=== PATIENT | male | born 1985 | race Caucasian/White ===

== ENCOUNTER 2021-07-22 00:23 | Observation (INO) ==
[2021-07-22] MEDS ORDERED: LORazepam 1 MG in SYRINGE 0.5 ML IV STA (00:38)
[2021-07-22] MEDS ORDERED: SODIUM CHLORIDE 0.9% 1000ML 1,000 ML IV STA (00:38)
--- NOTE | 2021-07-22 00:42 | Emergency Department Note ---
Impression & Plan Elevated troponin I level ADMIT ED Provider Note HPI: The patient is a 36-year-old male who presents the emergency department with a chief complaint of anxiety and lightheadedness after eating some CBD Gummies that he purchased. Patient states that about an hour or 2 after eating these Gummies he began to feel a sensation of some lightheadedness, states he was feeling anxious, he contacted EMS for transport to the ED. Patient is in no acute distress on arrival but he is noted to be tachycardic in the 120s, denies any chest pain or shortness of breath. He is otherwise hemodynamically stable on arrival.He is alert and oriented and able to give me a lucid history. ROS: - General: Anxiety status post drug ingestion *10 point review systems was conducted and is otherwise negative unless stated above *Outpatient medications and allergy history reviewed PE: General: Alert, NAD HEENT: Normocephalic, atraumatic Eyes: Extraocular eye movement is intact, no scleral erythema Pulmonary: Clear to auscultation bilaterally, no wheezing Cardio: Tachycardic rate and regular rhythm GI: Abdomen is soft, nontender : No suprapubic tenderness MSK: No evidence of trauma or malformation of the extremities, no edema Skin: No evidence of rash Neuro: Alert, no focal deficits Psychiatric: Cooperative hall monitor: - An order was placed for continuous cardiac monitoring - Patient was noted to be in sinus rhythm with rate of 122 EKG: Rate: 119 Rhythm: Sinus tachycardia Intervals: Within normal limits ST changes: No ST elevation Time: 0032 CTA CHEST: Mild bilateral lower lobe atelectasis otherwise no acute cardiopulmonary disease. No pulmonary embolus or aortic dissection. No pleural effusion or pneumothorax. Upper abdomen is unremarkable. Unremarkable bony structures. Normal cardiomediastinal structures. Radiologist: Suzanne Marley MD Medical Decision Making: Patient presented to the emergency department after having a CBD edible, states he was feeling lightheaded and anxious, on arrival he is tachycardic, he denies any current chest pain. IV was established, lab work obtained, lab work does not show any evidence of any acute electrolyte abnormalities, high-sensitivity troponin level is noted to be slightly elevated at 20.7, D-dimer is also elevated at 690. Delta troponin was obtained and there is significant change to a high- sensitivity troponin level at 2 hours to 56, CT angiography of the chest was obtained that does not show any evidence of pulmonary embolism or aortic dissection.On my reassessment following IV fluids and Ativan the patient states he is feeling improved, his tachycardia is down trended, given his uptrending high-sensitivity troponin levels I do feel it would be beneficial for him to be admitted for further management. Patient expressed an agreement understanding. Case was discussed with the on-call hospitalist for [facility], Dr. Frausto, And the patient was admitted in stable condition for further care. Diagnosis: 1. Elevated high-sensitivity troponin level 2. Tachycardia 3. CBD abuse/ingestion Disposition: Admission Rafy Mcdaniel DO Emergency Medicine Past Med/Surg History Social History Smoking Status: Never smoker Feels Safe at Home: Yes Allergies Allergies Allergy/AdvReac Type Severity Reaction Status Date / Time No Known Allergies Allergy Unverified 07/22/21 01:13 Home Meds Home Medications Medication Instructions Recorded Confirmed budesonide-formoterol HFA 80 1 puff INHALATION DAILY 07/22/21 07/22/21 mcg-4.5 mcg/actuation aerosol inhaler (Symbicort) Results & Data (ED) Vital Signs Vital Signs - 24 hr 07/22/21 00:27 07/22/21 00:29 07/22/21 00:30 Temperature 36.7 C Temperature Source Oral Pulse Rate 123 H 128 H 120 H Pulse Rate [Apical] Pulse Rate from SpO2 Sensor 127 H 119 H Respiratory Rate 24 17 22 Respiratory Effort / Characteristics Non-Labored Spontaneous Respiratory Depth Normal Blood Pressure 143/92 H 131/85 Blood Pressure [Right Arm] Blood Pressure Mean 109 100 Blood Pressure Mean [Right Arm] Pulse Oximetry 100 98 100 Oxygen Delivery Method Room Air Sepsis Recent Fever Within 48 Hours No Sepsis New/Unexplained Change in Mental Status No Sepsis Action Taken by Nursing No Action Required 07/22/21 00:58 07/22/21 01:00 07/22/21 01:30 Temperature Temperature Source Pulse Rate 111 H 109 H Pulse Rate [Apical] Pulse Rate from SpO2 Sensor 108 H 108 H Respiratory Rate 20 21 Respiratory Effort / Characteristics Respiratory Depth Blood Pressure 138/82 129/81 Blood Pressure [Right Arm] Blood Pressure Mean 100 97 Blood Pressure Mean [Right Arm] Pulse Oximetry 99 100 99 Oxygen Delivery Method Room Air Sepsis Recent Fever Within 48 Hours Sepsis New/Unexplained Change in Mental Status Sepsis Action Taken by Nursing 07/22/21 01:35 07/22/21 02:00 07/22/21 02:30 Temperature Temperature Source Pulse Rate 89 93 H Pulse Rate [Apical] 111 H Pulse Rate from SpO2 Sensor 89 94 H Respiratory Rate 16 18 19 Respiratory Effort / Characteristics Respiratory Depth Blood Pressure 119/77 120/71 Blood Pressure [Right Arm] 129/81 Blood Pressure Mean 91 87 Blood Pressure Mean [Right Arm] 97 Pulse Oximetry 100 99 98 Oxygen Delivery Method Room Air Sepsis Recent Fever Within 48 Hours Sepsis New/Unexplained Change in Mental Status Sepsis Action Taken by Nursing 07/22/21 03:00 07/22/21 03:30 07/22/21 04:00 Temperature Temperature Source Pulse Rate 93 H 90 102 H Pulse Rate [Apical] Pulse Rate from SpO2 Sensor 92 H 91 H 102 H Respiratory Rate 17 19 18 Respiratory Effort / Characteristics Respiratory Depth Blood Pressure 123/74 120/63 129/73 Blood Pressure [Right Arm] Blood Pressure Mean 90 82 91 Blood Pressure Mean [Right Arm] Pulse Oximetry 97 99 99 Oxygen Delivery Method Sepsis Recent Fever Within 48 Hours Sepsis New/Unexplained Change in Mental Status Sepsis Action Taken by Nursing 07/22/21 04:30 Temperature Temperature Source Pulse Rate 106 H Pulse Rate [Apical] Pulse Rate from SpO2 Sensor 107 H Respiratory Rate 18 Respiratory Effort / Characteristics Respiratory Depth Blood Pressure 128/76 Blood Pressure [Right Arm] Blood Pressure Mean 93 Blood Pressure Mean [Right Arm] Pulse Oximetry 99 Oxygen Delivery Method Sepsis Recent Fever Within 48 Hours Sepsis New/Unexplained Change in Mental Status Sepsis Action Taken by Nursing Laboratory Data Result diagrams: 07/22/21 00:55 07/22/21 03:56 Lab Results 07/22/21 07/22/21 07/22/21 Range/Units 00:55 00:55 03:00 WBC 8.13 (4.8-10.8) K/uL RBC 4.17 L (4.7-6.1) M/uL Hgb 13.8 L (14.0-18.0) g/dL Hct 40.2 L (42-52) % MCV 96.4 (80-100) fL MCH 33.1 (25-34) pg MCHC 34.3 (32-36) g/dL RDW Std Deviation 44.8 (36.4-46.3) fL RDW Coeff of Remigio 12.8 (11.5-14.5) % Plt Count 254 (130-400) K/uL MPV 10.7 H (7.4-10.4) fL Immature Gran % (Auto) 0.6 % Neut % (Auto) 69.0 % Lymph % (Auto) 20.9 % Frio % (Auto) 7.1 % Eos % (Auto) 2.3 % Baso % (Auto) 0.1 % Neut # (Auto) 5.60 (1.4-6.5) K/uL Lymph # (Auto) 1.70 (1.2-3.4) K/uL Frio # (Auto) 0.58 (0.11-0.59) K/uL Eos # (Auto) 0.19 (0-0.5) K/uL Baso # (Auto) 0.01 (0-0.2) K/uL Immature Gran # (Auto) 0.05 H (0.00-0.02) K/uL D-Dimer (0-500) ug/L FEU Sodium TNP 141 Potassium TNP TNP Chloride 107 (98-107) mmol/L Carbon Dioxide 26 (21-32) mmol/L Anion Gap TNP BUN 17 (6-23) mg/dl Creatinine 1.02 (0.6-1.4) mg/dl Est Cr Clr Drug Dosing 107.4 ml/min Est GFR ( Amer) 109.9 ml/min Est GFR (Non-Af Amer) 94.8 ml/min BUN/Creatinine Ratio 16.7 (10-20) Glucose 147 H (70-99(Fasting)) mg/dl Calcium 9.0 (8.5-10.1) mg/dl Total Bilirubin 0.5 (0.2-1.0) mg/dl AST TNP TNP ALT 37 (7-52) U/L Alkaline Phosphatase TNP 58 Troponin I High Sens 20.7 H (0-20) pg/ml Total Protein 7.2 (6.0-8.3) gm/dl Albumin TNP 4.3 Globulin TNP Albumin/Globulin Ratio TNP 07/22/21 07/22/21 07/22/21 Range/Units 03:00 03:18 03:56 WBC (4.8-10.8) K/uL RBC (4.7-6.1) M/uL Hgb (14.0-18.0) g/dL Hct (42-52) % MCV (80-100) fL MCH (25-34) pg MCHC (32-36) g/dL RDW Std Deviation (36.4-46.3) fL RDW Coeff of Remigio (11.5-14.5) % Plt Count (130-400) K/uL MPV (7.4-10.4) fL Immature Gran % (Auto) % Neut % (Auto) % Lymph % (Auto) % Frio % (Auto) % Eos % (Auto) % Baso % (Auto) % Neut # (Auto) (1.4-6.5) K/uL Lymph # (Auto) (1.2-3.4) K/uL Frio # (Auto) (0.11-0.59) K/uL Eos # (Auto) (0-0.5) K/uL Baso # (Auto) (0-0.2) K/uL Immature Gran # (Auto) (0.00-0.02) K/uL D-Dimer 690 H* (0-500) ug/L FEU Sodium Potassium 4.3 Chloride (98-107) mmol/L Carbon Dioxide (21-32) mmol/L Anion Gap BUN (6-23) mg/dl Creatinine (0.6-1.4) mg/dl Est Cr Clr Drug Dosing ml/min Est GFR ( Amer) ml/min Est GFR (Non-Af Amer) ml/min BUN/Creatinine Ratio (10-20) Glucose (70-99(Fasting)) mg/dl Calcium (8.5-10.1) mg/dl Total Bilirubin (0.2-1.0) mg/dl AST 27 ALT (7-52) U/L Alkaline Phosphatase Troponin I High Sens 56.2 H* D (0-20) pg/ml Total Protein (6.0-8.3) gm/dl Albumin Globulin Albumin/Globulin Ratio Administered Medications Discontinued Medications Sodium Chloride (Nss 1000ml) 1,000 mls @ 999 mls/hr IV .Q1H1M STA Stop: 07/22/21 01:38 Last Infusion: 07/22/21 02:14 Dose: 0 mls/hr Documented by: [id number] Admin: 07/22/21 00:54 Dose: 999 mls/hr Documented by: [id number] Lorazepam 1 mg/ Syringe 1 mls @ 2 mls/min IV NOW STA Stop: 07/22/21 00:39 Last Admin: 07/22/21 00:54 Dose: 2 mls/min Documented by: [id number] Ioversol (Optiray 320 125ml) 125 ml IV ONCE ONE Stop: 07/22/21 04:17 Last Admin: 07/22/21 04:16 Dose: 102 ml Documented by: [id number] Discharge Plan Visit Data Chief Complaint: Anxiety ED Provider: Rafy Mcdaniel Discharge Problem: Elevated troponin I level Forms Stand Alone Forms: [facility], Suicide Prevention Resources Prescriptions Prescriptions: No Action budesonide-formoterol [Symbicort] 80-4.5 mcg/actuation Hfa Aerosol Inhaler 1 puff INHALATION DAILY RF: 0 Referrals Referrals: PCP,NO [Primary Care Provider] -
[2021-07-22 01:14] LABS: Basophils # (auto) 0.01 K/uL (0-0.2); Basophils % (auto) 0.1 %; Eosinophils # (auto) 0.19 K/uL (0-0.5); Eosinophils % (auto) 2.3 %; Hematocrit (blood only) 40.2 % (42-52); Hemoglobin 13.8 g/dL (14.0-18.0); Immature Granulocytes # (auto) 0.05 K/uL (0.00-0.02); Immature Granulocytes % (auto) 0.6 %; Lymphocytes % (auto) 20.9 %; Mean Corpuscular Hemoglobin 33.1 pg (25-34); Mean Corpuscular Hgb Conc 34.3 g/dL (32-36); Mean Corpuscular Volume 96.4 fL (80-100); Mean Platelet Volume 10.7 fL (7.4-10.4); Monocytes # (auto) 0.58 K/uL (0.11-0.59); Monocytes % (auto) 7.1 %; Platelet Count 254 K/uL (130-400); RDW Coefficient of Variation 12.8 % (11.5-14.5); RDW Standard Deviation 44.8 fL (36.4-46.3); Red Blood Count 4.17 M/uL (4.7-6.1); White Blood Count 8.13 K/uL (4.8-10.8)
[2021-07-22 01:51] LABS: Alanine Aminotransferase 37 U/L (7-52); BUN Creatinine Ratio 16.7 (10-20); Bilirubin,Total 0.5 mg/dl (0.2-1.0); Blood Urea Nitrogen 17 mg/dl (6-23); Carbon Dioxide 26 mmol/L (21-32); Chloride 107 mmol/L (98-107); Creatinine Clr Calc Pharmacy 107.4 ml/min; Est GFR (African American) 109.9 ml/min; Est GFR (Non-African American) 94.8 ml/min; Glucose 147 mg/dl (70-99(Fasting)); Total Protein 7.2 gm/dl (6.0-8.3); Troponin I High Sensitivity 20.7 pg/ml (0-20)
[2021-07-22 03:47] LABS: Albumin Level 4.3 gm/dl (3.4-5.0); Alkaline Phosphatase 58 U/L (34-104); Sodium 141 mmol/L (136-145)
[2021-07-22 03:48] LABS: D Dimer 690 ug/L FEU (0-500)
[2021-07-22] MEDS ORDERED: OPTIRAY 320 125ml IV ONE (04:16)
[2021-07-22 04:21] LABS: Potassium 4.3 mmol/L (3.5-5.1)
[2021-07-22] MEDS ORDERED: ASPIRIN CHEW 324 MG PO STA (06:03)
[2021-07-22] MEDS ORDERED: SODIUM CHLORIDE 0.9% 500 ML IV SCH (06:51)
[2021-07-22] MEDS ORDERED: NITROGLYCERIN SL 0.4 MG/TAB TAB SL PRN (06:51)
[2021-07-22] MEDS ORDERED: ONDANSETRON INJ 2 MG/ML 2 ML VIAL IV PRN (06:51)
[2021-07-22] MEDS ORDERED: ALBUTEROL HFA 8 GM INHALER INH PRN (06:51)
[2021-07-22] MEDS ORDERED: LORazepam 0.5 MG in SYRINGE 0.25 ML IV PRN (06:51)
[2021-07-22] MEDS ORDERED: ACETAMINOPHEN 325 MG TAB PO PRN (06:51)
--- NOTE | 2021-07-22 07:32 | History and Physical Report ---
DATE OF ADMISSION: 07/22/2021. CHIEF COMPLAINT: Anxiety, palpitations. HISTORY OF PRESENT ILLNESS: This is a 36-year-old male with past medical history significant for asthma, who is from visiting [employer] for learning, he is here for about a week. Says he was with friends, he was having fun, had a couple of beers and had two CBD gummies. Then he was feeling anxious, palpitations, headache, dizziness, nausea, on and off chest discomfort, which prompted him to come to the ER.When he came in he was tachycardic, heart rate is in 120s. His initial troponin was 20, but repeat in two hours is 56. The patient denies any chest pain, no shortness of breath, no abdominal pain. Normal bowel and bladder movements. Appetite is okay. No earache, no runny nose, no sore throat, no cough.Covid rapid test came back positive. ALLERGIES: No known drug allergies. PAST MEDICAL HISTORY: As mentioned above. PAST SURGICAL HISTORY: None. MEDICATIONS: On Symbicort 1 puff inhalation daily. SOCIAL HISTORY: Denies smoking. Alcohol occasional. Denies any other drugs in the past except for the CBD, which was done the second time. FAMILY HISTORY: Unknown at this time. PHYSICAL EXAMINATION: GENERAL: The patient is of moderate build, not in acute distress. VITAL SIGNS: Temperature 36.7, pulse currently 106, respiratory rate 18, blood pressure 128/76, oxygen 99% on room air. HEENT: Pupils equal, round, and reactive to light. Oral mucosa dry. NECK: No JVD, no neck masses. CARDIOVASCULAR: S1 and S2 heard, tachycardia. No murmurs. RESPIRATORY SYSTEM: Normal AP diameter. No accessory muscle use. No wheezing, no crackles. ABDOMEN: Soft. Bowel sounds are present, nontender, no distention. CENTRAL NERVOUS SYSTEM: Cranial nerves II through XII are grossly intact, nonfocal. EXTREMITIES: No edema, no erythema. LABORATORY DATA: WBC 8.1, hemoglobin 13.8, hematocrit 40.2, platelets 254. D- dimer 690. Sodium 141, potassium 4.3, chloride 107, bicarbonate 26, BUN 17, creatinine 1.02, serum glucose 147, calcium 9, total bilirubin 0.5, AST 27, ALT 37, alkaline phosphatase 58. Troponin I high sensitivity 20, repeat 56. LEBRON-CoV-2 rapid test positive. IMAGING DATA: CTA chest, mild bilateral lower lobe atelectasis, otherwise no acute cardiopulmonary disease, no pulmonary embolus or aortic dissection. No pleural effusion or pneumothorax. Upper abdomen is unremarkable. Unremarkable bony structure. Normal cardiomediastinal structures. EKG: Sinus tachycardia at a rate of 119. Nonspecific ST abnormalities. ASSESSMENT AND PLAN: This is a 36-year-old male who presents with anxiety after taking two CBD gummies. 1. Anxiety, palpitations after taking two CBD gummies and couple of beers. This is the second time that he had CBD gummies. Denies any drug use. He received one dose of Ativan in the ER, currently resting comfortably. Seems improving. Received some fluids in the ER. Will continue with IV fluids, IV Ativan p.r.n. Closely monitor in the [employer] tele. 2. Mild elevation of troponin: Probably secondary to above. He had some chest discomfort but none currently. Will follow the echocardiogram and serial cardiac enzymes. 3. Asthma: Continue home inhalers. 4. Elevated D-dimer: CTA chest was unremarkable. 5. COVID positive on rapid test. Saturating okay on room air and CTA chest is unremarkable. Placed the patient on COVID precautions. 6. Deep venous thrombosis prophylaxis: Will place him on Lovenox. DISPOSITION: Observe in [employer] tele. PT/OT prior to discharge. Social service to help with discharge planning. Job ID: [id number] MTDD
--- NOTE | 2021-07-22 07:49 | CT Scan Report ---
CT ANGIOGRAPHY OF THE CHEST, PULMONARY EMBOLUS PROTOCOL CLINICAL HISTORY: Atypical chest pain. Evaluate for pulmonary embolus. COMPARISON STUDY: No previous studies for comparison. TECHNIQUE: Following IV administration of 102 mL of Optiray, helical axial images of the chest were o btained utilizing the pulmonary embolus protocol. Maximal intensity projections and sagittal and cor onal reformats were viewed on an independent 3D workstation. IV contrast was administered without co mplication. Automated exposure control was utilized for the study. A dose lowering technique was ut ilized adhering to the principles of ALARA. CT DOSE: 318.56 mGy.cm FINDINGS: No central pulmonary emboli are present. Note is made of a small segmental pulmonary embol us within the lateral basal segment of the left lower lobe on axial image 111 of 371. No additional p ulmonary emboli are identified. There is no pulmonary infarct. No thoracic aortic dissection is prese nt. Size the heart is normal. No pericardial effusion. There are multiple small low suspicion pulmona ry nodules which measure up to 4 mm. Visualized portions of the upper abdomen are unremarkable. There is a healing anterior left fifth rib fracture. IMPRESSION: 1. Small segmental pulmonary embolus within the lateral basal segment of the left lower lobe. This fi nding will be called/faxed to ordering provider at time of dictation. 2. No additional pulmonary emboli. No pulmonary infarcts. 3. Several small low suspicion pulmonary nodules measuring up to 4 mm which are likely benign. ACT 112: Negative or not required by law. Electronically signed by: Yohan Bahena M.D. 07/22/2021 7:48 AM
[2021-07-22 09:56] LABS: Basophils # (auto) 0.01 K/uL (0-0.2); Basophils % (auto) 0.1 %; Eosinophils # (auto) 0.02 K/uL (0-0.5); Eosinophils % (auto) 0.2 %; Hematocrit (blood only) 42.1 % (42-52); Hemoglobin 13.9 g/dL (14.0-18.0); Immature Granulocytes # (auto) 0.03 K/uL (0.00-0.02); Immature Granulocytes % (auto) 0.3 %; Lymphocytes # (auto) 0.61 K/uL (1.2-3.4); Lymphocytes % (auto) 6.2 %; Mean Corpuscular Hemoglobin 31.5 pg (25-34); Mean Corpuscular Volume 95.5 fL (80-100); Mean Platelet Volume 9.8 fL (7.4-10.4); Monocytes # (auto) 0.84 K/uL (0.11-0.59); Monocytes % (auto) 8.6 %; Neutrophils # (auto) 8.28 K/uL (1.4-6.5); Neutrophils % (auto) 84.6 %; Platelet Count 234 K/uL (130-400); RDW Standard Deviation 45.6 fL (36.4-46.3); Red Blood Count 4.41 M/uL (4.7-6.1); White Blood Count 9.79 K/uL (4.8-10.8)
[2021-07-22 10:12] LABS: Potassium 3.9 mmol/L (3.5-5.1)
[2021-07-22 10:13] LABS: BUN Creatinine Ratio 13.7 (10-20); Creatinine Clr Calc Pharmacy 102.5 ml/min; Est GFR (African American) 109.9 ml/min; Est GFR (Non-African American) 94.8 ml/min; Magnesium 2.2 mg/dl (1.7-2.4)
[2021-07-22] MEDS: SODIUM CHLORIDE 0.45 % 1,000 ML IV SCH ×2 (10:15→18:04)
[2021-07-22 10:19] LABS: Troponin I High Sensitivity 18.7 pg/ml (0-20)
[2021-07-22] MEDS: APIXABAN 5 MG TABLET PO SCH ×2 (10:30→20:53)
[2021-07-22] MEDS: FLUTICASONE/VILANTEROL 100/25MCG 14 PUFFS/INHALER INH SCH (10:31)
--- NOTE | 2021-07-22 11:32 | Electrocardiogram Report ---
Test Reason : Blood Pressure : / mmHG Vent. Rate : 119 BPM Atrial Rate : 119 BPM P-R Int : 168 ms QRS Dur : 098 ms QT Int : 318 ms P-R-T Axes : 066 074 042 degrees QTc Int : 447 ms Poor data quality, interpretation may be adversely affected Sinus tachycardia Possible Left atrial enlargement Incomplete right bundle branch block Left ventricular hypertrophy Nonspecific ST abnormality Abnormal ECG No previous ECGs available Confirmed by Manuel Mejia ([id number]) on 07/22/2021 11:32:39 AM Referred By: REFERRED SELF Confirmed By:Renan Mejia
--- NOTE | 2021-07-22 18:44 | Communication Note ---
Date of Service: July 22, 2021 Pt was seen and examined for follow of palpitation. Lying in bed with no acute distress. Pt said that he is not having any SOB. HR improves significantly. CTA chest showed Small segmental pulmonary embolus within the lateral basal segment of the left lower lobe. No additional pulmonary emboli. No pulmonary infarcts. Several small low suspicion pulmonary nodules measuring up to 4 mm which are likely benign. ECHO showed LV wall motion thickness. LV wall motion is normal with EF 55-60%. Will start on Eliquis 10mg BID for 7 days then 5mg BID. No treatment needed for the COVID 19 since pt saturated well on RA. Continue monitor closely. MD Yana
[2021-07-23 06:58] LABS: Creatinine Clr Calc Pharmacy 100.8 ml/min; Est GFR (African American) 108.6 ml/min; Est GFR (Non-African American) 93.7 ml/min
[2021-07-23] MEDS: FLUTICASONE/VILANTEROL 100/25MCG 14 PUFFS/INHALER INH SCH (08:54)
[2021-07-23 09:11] LABS: Hematocrit (blood only) 42.5 % (42-52); Hemoglobin 14.1 g/dL (14.0-18.0); Mean Corpuscular Hemoglobin 31.8 pg (25-34); Mean Corpuscular Hgb Conc 33.2 g/dL (32-36); Mean Corpuscular Volume 95.7 fL (80-100); Mean Platelet Volume 10.2 fL (7.4-10.4); Platelet Count 208 K/uL (130-400); RDW Coefficient of Variation 13.3 % (11.5-14.5); RDW Standard Deviation 46.5 fL (36.4-46.3); Red Blood Count 4.44 M/uL (4.7-6.1); White Blood Count 6.44 K/uL (4.8-10.8)
[2021-07-23] MEDS: APIXABAN 5 MG TABLET PO SCH (10:28)
--- NOTE | 2021-07-23 10:42 | Electrocardiogram Report ---
Test Reason : Blood Pressure : / mmHG Vent. Rate : 079 BPM Atrial Rate : 079 BPM P-R Int : 146 ms QRS Dur : 088 ms QT Int : 364 ms P-R-T Axes : 069 081 057 degrees QTc Int : 417 ms Normal sinus rhythm Normal ECG When compared with ECG of 22-JUL-2021 00:32, Vent. rate has decreased BY 40 BPM Incomplete right bundle branch block is no longer Present ST no longer depressed in Inferior leads Confirmed by Indio Rivera ([id number]) on 07/23/2021 10:41:58 AM Referred By: REFERRED SELF Confirmed By:Indio Rivera
--- NOTE | 2021-07-23 17:04 | CT Scan Report ---
CT OF THE HEAD WITHOUT CONTRAST CLINICAL HISTORY: headache/ pressure on Eliquis COMPARISON STUDY: No previous studies for comparison. CT DOSE: 537.48 mGy.cm TECHNIQUE: Helical axial images of the head were obtained without IV contrast. Automated exposure con trol was utilized for the study. A dose lowering technique was utilized adhering to the principles o f ALARA. FINDINGS: No acute intracranial hemorrhage, midline shift or mass effect is present. The ventricular system is unremarkable. The basal cisterns are patent. No extra-axial collections are present. There are no findings to suggest acute dural sinus thrombosis or acute territorial infarct. No significant calvarial abnormalities are present. Visualized portions of the sinuses and mastoid air cells are myles ar. IMPRESSION: No acute intracranial findings. ACT 112: Negative or not required by law. Electronically signed by: Yohan Bahena M.D. 07/23/2021 5:02 PM
[2021-07-23] MEDS ORDERED: APIXABAN 5 MG TABLET PO SCH (21:00)
[2021-07-24] MEDS ORDERED: APIXABAN 5 MG TABLET PO SCH (09:00)
--- NOTE | 2021-07-24 11:45 | Discharge Summary ---
Date of Service July 23, 2021 Discharge Data Allergies Allergy/AdvReac Type Severity Reaction Status Date / Time No Known Allergies Allergy Unverified 07/22/21 01:13 Consultations 07/22/21 04:21 ED Decision to Admit Stat Ordered Studies 07/22/21 03:43 CT angio chest PE protocol Urgent 07/23/21 15:53 CT head/brain wo con Urgent Discharge Plan Discharge Items Patient Disposition: Home - Self-Care Reason For Visit: ANXIETY Discharge Diagnosis: COVID 19 Pulmonary embolism Activity: Resume your previous activity Non-emergency contact: Primary Care Provider Call non-emergency contact if: you have any medication questions Follow-up/Referrals: PCP,NO [Primary Care Provider] - Diet: Regular Addtl Attending Provider Instructions: Follow up with your provider within 1 week Continue to wear your mask and practice social distance Continue anticoagulant with Eliquis 10mg twice a day for 5 days, then continue 5mg twice a day Monitor for any abnormal bleeding while taking Eliquis Avoid any activity with risk of Fall Medication Instructions: Eliquis Your condition is typically treated with an anticoagulant. Anticoagulants will thin your blood to help prevent new clots. You should take her medication exactly as directed. Never skip a dose. Never take a double dose. If you miss a dose, take it as soon as you remember. Avoid NSAIDs (Motrin, Aleve, Naproxen, Ibuprofen, Advil, Meloxicam,..) due to risks of bleeding Call your Primary Care doctor if you experience any of the following: Swelling or Pain in your leg Sudden, continuous pain deep in a muscle Pain that worsens when you are active or when you stand still for a long time Chest Pain Sudden Shortness of Breath Rapid or pounding heart beat Fainting Dizziness Cough with blood or bloody sputum Sweating more than normal Bruises Heavy or uncontrolled bleeding Blood in your urine, stool or vomit Black or tarry stools Home Isolation COVID-19 Instructions The following information about Home Isolation is from the CDC Website: https://www.cdc.gov/coronavirus/2019-ncov/hcp/dzntwdwc-rcznwex-ngizyo.html Stay home except to get medical care People who are mildly ill with COVID-19 are able to isolate at home during their illness. You should restrict activities outside your home, except for getting medical care. Do not go to work, school, or public areas. Avoid using public transportation, ride-sharing, or taxis. Separate yourself from other people and animals in your home People: As much as possible, you should stay in a specific room and away from other people in your home. Also, you should use a separate bathroom, if avai lable. Animals: You should restrict contact with pets and other animals while you are sick with COVID-19, just like you would around other people. Although there have not been reports of pets or other animals becoming sick with COVID-19, it is still recommended that people sick with COVID-19 limit contact with animals until more information is known about the virus. When possible, have another member of your household care for your animals while you are sick. If you are sick with COVID-19, avoid contact with your pet, including petting, snuggling, being kissed or licked, and sharing food. If you must care for your pet or be around animals while you are sick, wash your hands before and after you interact with pets and wear a face mask. Call ahead before visiting your doctor If you have a medical appointment, call the healthcare provider and tell them that you have or may have COVID-19. This will help the healthcare providers office take steps to keep other people from getting infected or exposed. Wear a face mask You should wear a face mask when you are around other people (e.g., sharing a room or vehicle) or pets and before you enter a healthcare providers office. If you are not able to wear a face mask (for example, because it causes trouble breathing), then people who live with you should not stay in the same room with you, or they should wear a face mask if they enter your room. Cover your coughs and sneezes Cover your mouth and nose with a tissue when you cough or sneeze. Throw used tissues in a lined trash can. Immediately wash your hands with soap and water for at least 20 seconds or, if soap and water are not available, clean your hands with an alcohol-based hand bridge painter helper that contains at least 60% alcohol. Clean your hands often Wash your hands often with soap and water for at least 20 seconds, especially after blowing your nose, coughing, or sneezing; going to the bathroom; and before eating or preparing food. If soap and water are not readily available, use an alcohol-based hand bridge painter helper with at least 60% alcohol, covering all surfaces of your hands and rubbing them together until they feel dry. Soap and water are the best option if hands are visibly dirty. Avoid touching your eyes, nose, and mouth with unwashed hands. Avoid sharing personal household items You should not share dishes, drinking glasses, cups, eating utensils, towels, or bedding with other people or pets in your home. After using these items, they should be washed thoroughly with soap and water. Clean all high-touch surfaces everyday High touch surfaces include counters, tabletops, doorknobs, bathroom fixtures, toilets, phones, keyboards, tablets, and bedside tables. Also, clean any surfaces that may have blood, stool, or body fluids on them. Use a household cleaning spray or wipe, according to the label instructions. Labels contain instructions for safe and effective use of the cleaning product including precautions you should take when applying the product, such as wearing gloves and making sure you have good ventilation during use of the product. Monitor your symptoms Seek prompt medical attention if your illness is worsening (e.g., difficulty breathing).Beforeseeking care, call your healthcare provider and tell them that you have, or are being evaluated for, COVID-19. Put on a face mask before you enter the facility. These steps will help the healthcare providers office to keep other people in the office or waiting room from getting infected or exposed. Ask your healthcare provider to call the local or state health department. Persons who are placed under active monitoring or facilitated self- monitoring should follow instructions provided by their local health department or occupational health professionals, as appropriate. When working with your local health department check their available hours. If you have a medical emergency and need to call 911, notify the dispatch personnel that you have, or are being evaluated for COVID-19. If possible, put on a face mask before emergency medical services arrive. Discontinuing home isolation Patients with confirmed COVID-19 should remain under home isolation precautions until the risk of secondary transmission to others is thought to be low. The decision to discontinue home isolation precautions should be made on a [id number] basis, in consultation with healthcare providers and state and local health departments. Coronavirus disease 2019 (COVID-19) is a virus that causes a respiratory illness. It is caused by a coronavirus called 2019 novel coronavirus (2019- nCoV). There are many types of coronavirus. Coronaviruses are a very common cause of bronchitis. They may sometimes cause lung infection(pneumonia). Symptoms can range from mild to severe respiratory illness. These viruses are also foundin some animals. COVID-19 was first found in people in [facility], in late 2018. In 2020, several cases of COVID-19 have been confirmed in the [place] Public health officials are working to find the source. How the virus spreads is not yet fully known. It may be spread through droplets of fluid that a person coughs or sneezes into the air. It may be spread if you touch a surface with virus on it, such as a handle or object, and then touch your mouth. What are the symptoms of COVID-19? Some people have no symptoms or mild symptoms. Symptoms may appear 2 to 14 days after contact with the virus. Symptoms can include: Fever Coughing Trouble breathing What are possible complications from COVID-19? In many cases, this virus can cause infection (pneumonia) in both lungs. In some cases, this can cause . How is COVID-19 diagnosed? Your healthcare provider will ask about your symptoms. He or she will also ask about your recent travel and contact with sick people. Testing for the virus is only done through the CDC. If yourhealthcare provider thinks you may have COVID- 19, he or she will work with your local health department and the CDC on testing. Follow all instructions from your healthcare provider. COVID-19 is diagnosed by: Nasal and throat swab. A cotton-tipped swab is wiped inside your nose or throat. This is done to check for viruses in your nasal mucus. Sputum culture. A small sample of mucus coughed from your lungs (sputum) is collected if you have a cough. It is checked for the virus. How is COVID-19 treated? There is currently no medicine to treat the virus. Treatment is done to help your body while it fights the virus. This is known as supportive care. Supportive care may include: Pain medicine. These include acetaminophen and ibuprofen. They are used to help ease pain and reduce fever. Bed rest. This helps your body fight the illness. For severe illness, you may need to stay in the hospital. Care during severe illness may include: IV (intravenous) fluids.These are given through a vein to help keep your body hydrated. Oxygen. Supplemental oxygen or ventilation with a breathing machine (ventilator) may be given. This is done to keep enough oxygen in your body. Are you at risk for COVID-19? If youve been to a place where people have been sick with this virus, you are at risk for infection. You are at risk if you: Recently traveled to an affected area Had contact with a sick person who recently traveled to this area Had contact with a person who was diagnosed with COVID-19 How can COVID-19 be prevented? There is no vaccine yet. The best prevention is to not have contact with the virus. The CDC advises that people should not travel to areas where there are COVID-19 outbreaks right now for any reason that is not urgent. To help prevent spreading the infection, wash your hands often, or use an alcohol-basedhand bridge painter helper. If you are in an area with COVID-19: Wash your hands often. Or use an alcohol-based hand bridge painter helper often. Only touch your eyes, nose, or mouth with clean hands. Dont have contact with people who are sick. Follow local instructions about being in public. For example, you may be told to not use public transport for a period of time. Stay away from markets that have live or animals. Wash your hands after touching any animals. Don't touch animals that may be sick. Dont share eating or drinking tools with sick people. Dont kiss someone who is sick. Clean surfaces often with disinfectant. If you were in an area with COVID-19 in the last 14 days: Call your healthcare provider. He or she can talk with local health staff to see what action may be needed. Follow all instructions from your provider. Take your temperature every morning and evening for at least 14 days. This is to check for fever. Keep a record of the readings. Keep watch for symptoms of the virus. Tell your provider right away if you have symptoms. If you were in an area with COVID-19 and have a fever or other symptoms: Dont panic. Keep in mind that other illnesses can cause similar symptoms. Stay away from work, school, and public places. Limit physical contact with family members. Don't kiss anyone or share eating or drinking utensils. Clean surfaces you touch with disinfectant. This is to help prevent the virus from spreading. Call your healthcare provider. Explain that you have been exposed to COVID-19 and have symptoms. Do this before going to any hospital. Wait for instructions. Keep in mind that healthcare staff may wear protective equipment such as masks, gowns, gloves, and eye protection. You may be put in a separate room. This is to prevent the possible virus from spreading. Tell the healthcare staff about recent travel. This includes local travel on public transport. Staff may need to find other people you have been in contact with. Follow all instructions the healthcare staff give you. If you have been diagnosed with COVID-19 Follow all instructions from your healthcare provider. Dont leave your home, except to get medical care. Call your healthcare providers office before going. They can prepare and give you instructions. This will help prevent the virus from spreading. Dont go to work, school, or public areas. Dont use public transport or taxis. Stay away from other people in your home. Have them wear face masks around you. Dont share household items or food. Wear a face mask if you can. This includes at home or in a medical facility. Cover your face with a tissue when you cough or sneeze. Throw the tissue away. Wash your hands. Wash your hands often. Caregivers should: Follow all instructions from healthcare staff. Wear a face mask and protective clothing as advised. Wash hands often. Keep track of the sick persons symptoms. Clean surfaces, fabrics, and laundry thoroughly. Keep other people away from the sick person. When to call your healthcare provider Call your healthcare provider: If youve recently traveled and have symptoms If you have been diagnosed with COVID-19 and your symptoms are worse To learn more To find out more about COVID-19, visit the CDC website at www.cdc.g ov/coronavirus/2019-ncov/index.html. [employer]. [address] [place] [address], [place] [address]. All rights reserved. This information is not intended as a substitute for professional medical care. Always follow your healthcare professional's instructions. This information has been adapted from [employer] Pending Studies at Discharge: No Stand-Alone Forms: [employer], Smoking Cessation Medications and DC Order Prescriptions: New Eliquis 5 mg tablet 5 mg PO UD Qty: 70 RF: 0 Continued budesonide-formoterol [Symbicort] 80-4.5 mcg/actuation Hfa Aerosol Inhaler 1 puff INHALATION DAILY RF: 0 Discharge Orders: Discharge Order (Routine); Ordered 07/23/21 Ordered By: Tiara Millan Admission Data Admit Date/Time: 07/22/21 05:27 Attending Provider: Tiara Millan Admit Provider: Ray Frausto Primary Care Provider: PCP,NO Other Providers: Ray Frausto Other Interventions: Discharge Summary Assessment (RN) Last Done: 07/23/21 18:34
== END 2021-07-23 20:14 | disposition home or self-care (01) ==
LOC: 2S 00:23 → ED 00:23 → 2S 06:30